=== PATIENT | female | born 1950 | race Caucasian/White ===

== ENCOUNTER 2017-07-26 14:34 | Outpatient (CLI) | payer MEDICARE, BC | END 2017-07-26 14:35 | disposition home or self-care (01) | LOC: BICMAMMO 14:34 | PROVIDERS: ATTEND Internal Medicine | DX: Z12.31 Encounter for screening mammogram for malignant neoplasm of breast (principal); Z85.89 Personal history of malignant neoplasm of other organs and systems | CPT/HCPCS: 77063; 77067 ==

== ENCOUNTER 2018-02-07 11:04 | Outpatient (CLI) | payer MEDICARE, BC ==
--- NOTE | 2018-02-07 14:48 | BD ---
DEXA BONE MINERAL DENSITY STUDY 02/07/18 HISTORY: Osteoporosis screening. Postmenopausal female. COMPARISON: Bone mineral density study from 2016. FINDINGS: Lumbar Spine: BMD (g/cm2) L1 0.866 T-Score: 1.1 Z-Score: 0.7 L2 0.958 T-Score: -0.6 Z-Score: 1.4 L3 0.954 T-Score: -1.2 Z-Score: 0.9 L4 1.115 T-Score: 0.5 Z-Score: 2.7 L1-L4 0.973 T-Score: -0.7 Z-Score: 1.4 WHO classification of normal. Change from the comparison examination is -0.1% and baseline of 1.6% po sitive. Baseline exam is from 02/28/12. Left Femoral Neck: 0.576 T-Score: -2.5 Z-Score: -0.7 Total Femur: 0.785 T-Score: -1.3 Z-Score: 0.2 WHO classification is osteoporosis. The change from the baseline examination is +6.2%, statistically significant. Change from previous exam is -0.4%. Ten year fracture risk: Major osteoporotic fracture 23%. Hip fracture 5.9%. Impression: Osteoporosis left femoral neck with fracture risk as above. POS: TABBY
== END 2018-02-07 11:05 | disposition home or self-care (01) ==
LOC: BICMAMMO 11:04
PROVIDERS: ATTEND Internal Medicine Rheumatology
DX: M81.0 Age-related osteoporosis without current pathological fracture (principal)
CPT/HCPCS: 77080

== ENCOUNTER 2018-07-30 11:46 | Outpatient (CLI) | payer MEDICARE, BC ==
--- NOTE | 2018-08-15 15:48 | MMO ---
Bilateral MAMMO Bilat Screen [facility]. CLINICAL HISTORY: Patient is 68 years old and is seen for screening. The patient has no family history of breast cancer. The patient has a history of other cancer in 2004 and other cancer in 1990. VIEWS: The views performed were: bilateral craniocaudal with tomosynthesis and bilateral mediolateral oblique with tomosynthesis. FILMS COMPARED: The present examination has been compared to prior imaging studies performed at [facility] on 06/05/2007, 06/25/2008, 06/26/2009, 06/29/2010, 06/30/2011, 07/02/2012, 07/04/2013, 07/07/2014, 07/15/2015, 07/20/2016 and 07/26/2017, and at [facility] on 06/01/2005 and 06/06/2006. MAMMOGRAM FINDINGS: There are scattered fibroglandular densities. There are no suspicious masses, suspicious calcifications, or new areas of architectural distortion. IMPRESSION: THERE IS NO MAMMOGRAPHIC EVIDENCE OF MALIGNANCY. A ROUTINE FOLLOW-UP MAMMOGRAM IN 1 YEAR IS RECOMMENDED. THE RESULTS OF THIS EXAM WERE SENT TO THE PATIENT. ACR BI-RADS Category 1 - Negative MAMMOGRAPHY NOTE: 1. A negative mammogram report should not delay a biopsy if a dominant of clinically suspicious mass is present. 2. Approximately 10% to 15% of breast cancers are not detected by mammography. 3. Adenosis and dense breasts may obscure an underlying neoplasm.
== END 2018-07-30 11:47 | disposition home or self-care (01) ==
LOC: BICMAMMO 11:46
PROVIDERS: ATTEND Obstetrics & Gynecology
DX: Z12.31 Encounter for screening mammogram for malignant neoplasm of breast (principal); Z85.89 Personal history of malignant neoplasm of other organs and systems
CPT/HCPCS: 77063; 77067

== ENCOUNTER 2018-11-20 13:40 | Outpatient (CLI) | payer MEDICARE, BC ==
--- NOTE | 2018-11-20 14:37 | ULT ---
ULTRASOUND THYROID STANDARD: 11/20/18 HISTORY: Thyroid nodule. COMPARISON: None. FINDINGS: The background echotexture is normal. The right lobe measures 4.3 x 1.5 x 1.6 cm. The left lobe measu res 4.3 x 1.9 x 1.4 cm. 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 The isthmus is normal measuring 4 mm in AP dimension. No solid nodule. IMPRESSION: A few scattered colloid cysts without any nodule requiring aspiration or follow-up per TI-RADS criter ia. Normal background vascularity. POS: HOME
== END 2018-11-20 13:41 | disposition home or self-care (01) ==
LOC: BICULT 13:40
PROVIDERS: ATTEND Otolaryngology Plastic Surgery within the Head & Neck
DX: E04.1 Nontoxic single thyroid nodule (principal)
CPT/HCPCS: 76536

== ENCOUNTER 2019-09-09 14:18 | Outpatient (CLI) | payer MEDICARE, BC ==
--- NOTE | 2019-09-09 15:01 | MMO ---
Bilateral MAMMO Bilat Screen [facility]. CLINICAL HISTORY: Patient is 69 years old and is seen for screening. The patient has no family history of breast cancer. The patient has a history of other cancer in 2004 and other cancer in 1990. VIEWS: The views performed were: bilateral craniocaudal with tomosynthesis and bilateral mediolateral oblique with tomosynthesis. FILMS COMPARED: The present examination has been compared to prior imaging studies performed at [facility] on 07/20/2016, 07/26/2017 and 07/30/2018. This study has been interpreted with the assistance of computer-aided detection. MAMMOGRAM FINDINGS: There are scattered fibroglandular densities. There are no suspicious masses, suspicious calcifications, or new areas of architectural distortion. IMPRESSION: THERE IS NO MAMMOGRAPHIC EVIDENCE OF MALIGNANCY. A ROUTINE FOLLOW-UP MAMMOGRAM IN 1 YEAR IS RECOMMENDED. THE RESULTS OF THIS EXAM WERE SENT TO THE PATIENT. ACR BI-RADS Category 1 - Negative MAMMOGRAPHY NOTE: 1. A negative mammogram report should not delay a biopsy if a dominant of clinically suspicious mass is present. 2. Approximately 10% to 15% of breast cancers are not detected by mammography. 3. Adenosis and dense breasts may obscure an underlying neoplasm. Reported by: JAY STOREY MD Electonically Signed: [id number]
== END 2019-09-09 14:19 | disposition home or self-care (01) ==
LOC: BICMAMMO 14:18
PROVIDERS: ATTEND Obstetrics & Gynecology
DX: Z12.31 Encounter for screening mammogram for malignant neoplasm of breast (principal); Z85.9 Personal history of malignant neoplasm, unspecified
CPT/HCPCS: 77063; 77067

== ENCOUNTER 2020-04-22 07:55 | Outpatient (CLI) | payer MEDICARE, BC ==
--- NOTE | 2020-04-22 09:40 | BD ---
DEXA BONE DENSITY STUDY: HISTORY: Postmenopausal. FINDINGS: Lumbar Spine: BMD (g/cm2) L1 0.890 T-Score: -0.9 L2 0.931 T-Score: -0.9 L3 0.986 T-Score: -0.9 L4 1.055 T-Score: -0.1 L1-L4 0.962 T-Score: -0.8 Femoral Neck: 0.618 T-Score: -2.1 Total Femur: 0.753 T-Score: -1.5 Impression: Normal bone mineral density of the lumbar spine and osteopenia of the left femoral neck. POS: MARGARITA
== END 2020-04-22 07:56 | disposition home or self-care (01) ==
LOC: BICMAMMO 07:55
PROVIDERS: ATTEND Obstetrics & Gynecology
DX: Z13.820 Encounter for screening for osteoporosis (principal); M81.0 Age-related osteoporosis without current pathological fracture; Z79.890 Hormone replacement therapy; M85.852 Other specified disorders of bone density and structure, left thigh
CPT/HCPCS: 77080

== ENCOUNTER 2020-09-09 13:11 | Outpatient (CLI) | payer MEDICARE, BC | END 2020-09-09 13:12 | disposition home or self-care (01) | LOC: BICMAMMO 13:11 | PROVIDERS: ATTEND Obstetrics & Gynecology | DX: Z12.31 Encounter for screening mammogram for malignant neoplasm of breast (principal); Z85.89 Personal history of malignant neoplasm of other organs and systems | CPT/HCPCS: 77063; 77067 ==

== ENCOUNTER 2021-10-18 14:01 | Outpatient (CLI) | payer MEDICARE, BC | END 2021-10-18 14:02 | disposition home or self-care (01) | LOC: BICMAMMO 14:01 | PROVIDERS: ATTEND Family Medicine | DX: Z12.31 Encounter for screening mammogram for malignant neoplasm of breast (principal) | CPT/HCPCS: 77063; 77067 ==

== ENCOUNTER 2023-02-13 15:37 | Outpatient (CLI) | payer MEDICARE, BC | END 2023-02-13 15:38 | disposition home or self-care (01) | LOC: BICRAD 15:37 | PROVIDERS: ATTEND Internal Medicine Rheumatology | DX: M25.551 Pain in right hip (principal); M25.552 Pain in left hip; M46.1 Sacroiliitis, not elsewhere classified | CPT/HCPCS: 72170 ==

== ENCOUNTER 2023-02-28 15:06 | Outpatient (CLI) | payer MEDICARE, BC | END 2023-02-28 15:07 | disposition home or self-care (01) | LOC: BICRAD 15:06 | PROVIDERS: ATTEND Internal Medicine Rheumatology | DX: M54.50 Low back pain, unspecified (principal); M79.651 Pain in right thigh; M79.652 Pain in left thigh; M81.0 Age-related osteoporosis without current pathological fracture; M43.16 Spondylolisthesis, lumbar region; M47.816 Spondylosis without myelopathy or radiculopathy, lumbar region; Z79.899 Other long term (current) drug therapy | CPT/HCPCS: 72100 ==

== ENCOUNTER 2024-04-22 14:02 | Outpatient (CLI) | payer MEDICARE, BC | END 2024-04-22 14:03 | disposition home or self-care (01) | LOC: BICMAMMO 14:02 | PROVIDERS: ATTEND Obstetrics & Gynecology | DX: Z12.31 Encounter for screening mammogram for malignant neoplasm of breast (principal); M81.0 Age-related osteoporosis without current pathological fracture; M85.89 Other specified disorders of bone density and structure, multiple sites; Z85.89 Personal history of malignant neoplasm of other organs and systems | CPT/HCPCS: 77063; 77067; 77080 ==